=== PATIENT | female | born 1980 | race Caucasian/White ===

== ENCOUNTER 2018-05-17 11:46 | Day surgery (SDC) | payer OTHER ==
[2018-05-17] MEDS ORDERED: MIDAZOLAM 1 MG/ML 2 ML INJ ×2 (14:08)
[2018-05-17] MEDS ORDERED: FENTAnyl 50 MCG/ML VIAL (14:08)
== END 2018-05-17 17:09 | disposition home or self-care (01) ==
LOC: GIL 11:46
DX: R19.4 Change in bowel habit (principal); E66.9 Obesity, unspecified; Z68.42 Body mass index [BMI] 45.0-49.9, adult
CPT/HCPCS: 45378